=== PATIENT | female | born 1945 | race Caucasian/White ===

== ENCOUNTER → 2018-09-26 | Outpatient (CLI) | payer MEDICARE, OTHER ==
[~2018-09-26] MED LIST: HYDROCODONE-AP1 EAC6 PO; IBUPROFEN 600600 M1 PO; LOPRESSOR25 PO; ROBAXIN 750 MG750 MG PO
== END ==
LOC: M.RAD 07:00
DX: Z12.31 Encounter for screening mammogram for malignant neoplasm of breast (principal)

== ENCOUNTER → 2018-09-29 | Outpatient (CLI) | payer MEDICARE, OTHER | LOC: M.RAD 09-27 08:50 | DX: N63.22 Unspecified lump in the left breast, upper inner quadrant (principal) ==